=== PATIENT | male | born 1970 | race Two or more races ===

== ENCOUNTER 2025-03-16 06:06 | Day surgery (SDC) | payer MEDICAID ==
[2025-03-16] VITALS (8 sets, daily range): BP systolic 132; BP diastolic 71; PULSE 0–100; RESP 12–19; TEMP 97.2; O2SAT 93–99
[~2025-03-16] VITALS: Ht 175.3 cm; Wt 106.6 kg
[~2025-03-16 06:06] MED LIST: ACET-2058 PO; AML5T GT; APIX5TAB PO; ATOR20TA50 PO; ENAL1TAB46 GT; METO-159 PO; OMEG1CAP36 PO; OXY5T GT
[2025-03-16] MEDS ORDERED: DexAMETHasone SOD PHOS 4 MG/1ML SDV INJ ONE (06:38)
[2025-03-16] MEDS ORDERED: LIDOCAINE W/ EPINEPHRINE 2% INJ 20ML VIAL ONE (06:38)
[2025-03-16] MEDS ORDERED: ROPIVACAINE 0.5% (5MG/ML) 20ML AMPULE IJ ONE ×2 (06:38→07:06)
[2025-03-16] MEDS ORDERED: LIDOCAINE HCL 2% TOP JELLY 5ML TOP ONE (06:47)
[2025-03-16] MEDS ORDERED: PROPOFOL 10 MG/ML 20 ML IV ONE (06:47)
[2025-03-16] MEDS ORDERED: DexAMETHasone SOD PHOS 10MG/1ML VIAL INJ ONE (06:47)
[2025-03-16] MEDS ORDERED: GLYCOPYRROLATE 0.2 MG/ML 1ML VIAL ONE (06:47)
[2025-03-16] MEDS ORDERED: ONDANSETRON HCL 4 MG/2 ML VIAL ONE (06:47)
[2025-03-16] MEDS ORDERED: KETOROLAC TROMETH 30 MG/ML 1ML VIAL ONE (06:47)
[2025-03-16] MEDS ORDERED: LIDOCAINE 2% (LOCAL ANESTH.) PF 5ml SDV ONE (06:47)
[2025-03-16] MEDS ORDERED: fentaNYL CITRATE 100 MCG/2 ML VL ONE (06:47)
[2025-03-16] MEDS ORDERED: KETAMINE 50mg/ML 1ml syringe ONE (06:47)
[2025-03-16] MEDS ORDERED: EPINEPHrine HCL 1 MG/1 ML AMP ONE (06:48)
[2025-03-16] MEDS: CELECOXIB 100 MG CAP PO ONE (07:10)
[2025-03-16] MEDS: ACETAMINOPHEN IV 1000 MG/100ML (10MG/ML) IV ONE (07:10)
[2025-03-16] MEDS: GABAPENTIN 400 MG CAP PO ONE (07:10)
[2025-03-16] MEDS: ceFAZolin 2 GM/D5W50ml 50 ML IV ONE (07:30)
[2025-03-16] MEDS ORDERED: SODIUM CHLORIDE LOCK 10 ML ONE (07:40)
[2025-03-16] MEDS ORDERED: PHENYLEPHRINE HCL 10 MG/ML VL ONE (07:40)
[2025-03-16] MEDS ORDERED: ePHEDrine SULFATE 50 MG/ML AMP ONE (07:49)
--- NOTE | 2025-03-16 08:18 | DVHOP2 ---
Operative Report - 2 Report Details Date: 03/16/25 Preop Diagnosis: Left knee medial meniscus tear Postop Diagnosis: Left knee medial meniscus tear Left knee synovitis Surgeon: Michael Hoyt MD [employer] Good[employer] Maker: Anneliese CUNHA Anesthesiologist: Shimon Norwood CRNA Anesthesia: General, Local Consent: The patient was informed of the risks and benefits of the procedure. These include but are not limited to complications of anesthesia, postoperative infection, incomplete relief of symptoms, recurrence of symptoms, damage to blood vessels, nerves and tendons, deep venous thrombosis, pulmonary embolism and possible need for repeat surgery in the future. 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 General anesthetic was given. Patient received IV Ancef. Examination anesthesia performed. Surgical time-out performed verifying patient laterality and procedure. Left lower extremity had tourniquet applied. The extremity was shaved, prepped and draped in sterile fashion. Extremity was elevated, exsanguinated with Esmarch and tourniquet inflated to 250 mm Hg. Inferolateral portal was placed in the usual fashion entering the joint with blunt cannula and trocar and began my inspection 1st of the suprapatellar recess patellofemoral compartment medial gutter then medial compartment I placed inferior medial portal utilizing spinal needle for guidance had to do quite a bit of shaving to axial lateral visualization due to the amount of fat pad and synovium. I then debrided the tear to a stable margin with biters and Marti which was verified the probing I then inspected the notch and again had to do a lot a shaving due to exuberant fat pad to actually visualize the ligaments which were then probed and found to be intact I checked the lateral compartment in figure 4 position probed the structures which were intact I checked the lateral gutter brought my attention back to the patellofemoral compartment where I did additional shaving of synovium and medial plica the. The joint was then irrigated and suctioned several times to remove particulate debris. I closed the portal sites with Steri-Strips and dressed the wound sterilely and tourniquet was released patient tolerated the procedure well was brought to recovery room in stable condition Condition Stable Disposition Home MICHAEL HOYT MD March 16, 2025 08:18
[2025-03-16] MEDS: HYDROmorphone HCL 2 MG/ML VL/or syr IV PRN (08:26)
[2025-03-16] MEDS ORDERED: HYDROmorphone HCL 2 MG/ML VL/or syr ONE (08:26)
[2025-03-16] MEDS ORDERED: NALOXONE HCL 0.4 MG/ML VIAL IV PRN (08:30)
[2025-03-16] MEDS ORDERED: ePHEDrine SULFATE 50 MG/ML AMP IV PRN (08:30)
[2025-03-16] MEDS ORDERED: hydrALAZINE HCL 20 MG/ML VL IV PRN (08:30)
[2025-03-16] MEDS ORDERED: FLUMAZENIL 0.1 MG/ML INJ 10ML MDV IV PRN (08:30)
[2025-03-16] MEDS ORDERED: ONDANSETRON HCL 4 MG/2 ML VIAL IV PRN (08:30)
[2025-03-16] MEDS: oxyCODONE HCL 5MG TAB PO PRN (10:45)
[2025-03-16] MEDS: fentaNYL CITRATE 100 MCG/2 ML VL IV PRN (10:46)
[2025-03-16] MEDS: ALBUTEROL SULF 2.5 MG/0.5ML(0.5%) NEB SOLN ONE (11:50)
[2025-03-16] MEDS: ALBUTEROL SULF 2.5 MG/0.5ML(0.5%) NEB SOLN NEB ONE (11:50)
== END 2025-03-16 12:45 | disposition home or self-care (01) ==
LOC: SUR 06:06
PROVIDERS: ATTEND Orthopaedic Surgery
DX: S83.242A Other tear of medial meniscus, current injury, left knee, initial encounter (principal); M67.52 Plica syndrome, left knee; G89.18 Other acute postprocedural pain; G89.29 Other chronic pain; I10 Essential (primary) hypertension; E03.9 Hypothyroidism, unspecified; I48.91 Unspecified atrial fibrillation; E66.9 Obesity, unspecified; Z68.34 Body mass index [BMI] 34.0-34.9, adult; Z87.891 Personal history of nicotine dependence; X58.XXXA Exposure to other specified factors, initial encounter; Y93.89 Activity, other specified; Y92.89 Other specified places as the place of occurrence of the external cause; Y99.8 Other external cause status
CPT/HCPCS: 29881; 64450; 94640; J0171; J0690; J1100; J1171; J1885; J2003; J2371; J2405; J2704; J2795; J3010; J0131